=== PATIENT | male | born 1960 | race Caucasian/White ===

== ENCOUNTER → 2016-12-31 | Day surgery (SDC) | payer OTHER ==
[~2016-12-31] VITALS: Ht 182.9 cm; Wt 129.3 kg
[~2016-12-31] MED LIST: ALLEGRA ALLERG180 MG PO; CLARITIN10 MG PO; DIGOX250 MCG PO; ELIQUIS5 MG PO; FUROSEMIDE40 MG PO; LIPITOR TAB 1010 MG PO; LISINOPRIL20 MG PO; METOPROLOL TART25 MG PO; MULTIVITAMINS1 EAC1 PO; PANTOPRAZOLE SO40 MG PO; SOTALOL80 MG PO; TAMSULOSIN HCL0.4 MG PO
[2016-12-31 07:40] LABS: HEMOGLOBIN 16.7 gm/dl (14.0-17.5); RED BLOOD COUNT 5.48 M/UL (4.20-5.50); WHITE BLOOD COUNT 10.9 K/UL (4.5-11.0)
[2016-12-31 07:54] LABS: BUN/CREATININE RATIO 25 (0-10)
== END | disposition home or self-care (01) ==
LOC: OPSV2 07:09
PROVIDERS: Internal Medicine Cardiovascular Disease
DX: I48.1 Persistent atrial fibrillation (principal); I50.22 Chronic systolic (congestive) heart failure; I42.0 Dilated cardiomyopathy; I34.0 Nonrheumatic mitral (valve) insufficiency; I11.0 Hypertensive heart disease with heart failure; Z86.718 Personal history of other venous thrombosis and embolism; Z85.46 Personal history of malignant neoplasm of prostate; Z79.01 Long term (current) use of anticoagulants; Z79.899 Other long term (current) drug therapy
CPT/HCPCS: 80048; 85027; 92960; 93005; 93312; 93320; J1200; J1742; J2250; J2310; J3010

== ENCOUNTER → 2020-10-09 | Outpatient (CLI) | payer BC, OTHER ==
[~2020-10-09] MED LIST changes: +ALDACTONE 25MG25 MG PO; +ASPIRIN EC81 MG PO; +CEFUROXIME500 MG PO; +CO Q-10100 MG PO; +COZAAR100 MG PO; +ENTRESTO 24 MG1 EACH PO; +ENTRESTO 49 MG1 EACH PO; +LASIX20 MG PO; +LIPITOR10 MG PO; +LO-DOSE ASPIRIN81 MG PO; +LOPRESSOR 25 MG25 MG PO; +LORTAB 5-325 M1 EACH PO; +MAGNESIUM400 M2 PO; +METOPROLOL SUCC50 MG PO; +MULTI-VITAMIN1 EACH PO; +POTASSIUM99 M1 PO; +PROTONIX20 MG PO
== END ==
LOC: HEART 5 05-25 15:30
DX: I50.22 Chronic systolic (congestive) heart failure (principal); I42.0 Dilated cardiomyopathy; I51.7 Cardiomegaly
CPT/HCPCS: 93306